=== PATIENT | male | born 1960 | race Caucasian/White ===

== ENCOUNTER 2022-11-18 09:18 | Outpatient (AMB) | payer BC, SELFPAY ==
[2022-11-18 09:49] VITALS: BMI 44.1
--- NOTE | 2022-11-18 09:49 | A.OFFVIS_ITS ---
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 States he is S.P left total knee 01/[address] Gonzalez, states he is concern due to on and off swelling which increases with activities. States at times knee feels as if it wants to give out and soreness on his lateral side and has numbness in knee still. Patient states that he is quite active. He states that the is on his feet for approximately 10 hours per day. He is not able to take anti-inflammatory medicines because he is on Eliquis. Allergies No Known Allergies Allergy (Verified 11/18/22 09:49) Medication List - Last Reconciled 11/18/22 by Robi Gonzalez MD albuterol sulfate 90 mcg/actuation (Ventolin HFA) 2 puffs inhalation Q4H PRN albuterol sulfate mg inhalation Q8H PRN atorvastatin 80 mg PO DAILY cetirizine (Wal-Zyr (cetirizine)) 0 mg PO ferrous sulfate 325 mg PO DAILY ferrous sulfate 110 mg PO DAILY losartan 100 mg PO DAILY metolazone mg PO metoprolol succinate ER 100 mg PO DAILY pantoprazole 40 mg PO DAILY Physical Exam Vital Signs: BMI result Body Mass Index 44.1 Const Other: Well-nourished well-developed very friendly male awake alert and oriented x3 in no acute distress Extrem Other: Bilateral lower extremity examination shows good capillary refill, no skin lesions noted, normal sensation light touch Left knee examination shows that the surgical incision is well healed, no erythema, full active extension and flexion to 125 degrees, his patella tracks well, minimal diffuse swelling Results Reviewed Results Reviewed: X-rays of the patient's left knee taken today show a total knee arthroplasty in good position with no signs of loosening, no acute bony abnormalities Assessment & Plan Assessment & Plan (1) Left knee pain: Code(s): M25.562 - Pain in left knee Plan Mr. Arnold continues to do well after undergoing left total knee replacement surgery. He does have intermittent swelling most likely due to overuse. Activity modifications were discussed at length with the patient. He does know to take antibiotics before any dental work. He will contact me prior to his annual follow-up appointment should any questions or concerns arise. I spent 22 minutes in reviewing the patient's records and imaging studies, seeing the patient and documenting in the medical record. Orders: Orders XR knee LT 3V Today M25.562 - Pain in left knee Coding Level of Care Code Est Pt Level 2 (28628) Diagnoses Left knee pain M25.562
== END 2022-11-18 10:20 | disposition home or self-care (01) ==
PROVIDERS: Visit Provider Orthopaedic Surgery
DX: M25.562 Pain in left knee (principal)
CPT/HCPCS: 99212

== ENCOUNTER 2022-11-18 13:15 | Outpatient (REF) | payer BC, SELFPAY ==
--- NOTE | ~2022-11-18 | XR_ITS ---
EXAMINATION: XR KNEE, LEFT CLINICAL INFORMATION: Pain. COMPARISON: None available. TECHNIQUE: AP, lateral and sunrise views of the left knee are submitted. FINDINGS: Prosthetic components of the total knee arthroplasty are appropriately aligned without periprosthetic fracture or abnormal lucency. No component migration. No joint effusion. XR/XR knee LT 3V IMPRESSION: Appropriate alignment of the left total knee arthroplasty without evidence of complications.
== END 2022-11-18 13:16 | disposition home or self-care (01) ==
LOC: HO.HOSX 13:15
PROVIDERS: Visit Provider Orthopaedic Surgery
DX: M25.562 Pain in left knee (principal)
CPT/HCPCS: 73562

== ENCOUNTER 2023-11-15 11:19 | Outpatient (REF) | payer BC, SELFPAY ==
--- NOTE | ~2023-11-15 | XR_ITS ---
EXAMINATION: XR SHOULDER, RIGHT XR SHOULDER, LEFT CLINICAL INFORMATION: Right shoulder pain. Left shoulder pain. COMPARISON: None available. TECHNIQUE: Two views of each shoulder. FINDINGS: RIGHT SHOULDER: Soft tissue anchors at the greater tuberosity, consistent with prior rotator cuff repair. Status post Gi procedure with slight fragmentation of the distal clavicle. Acromioplasty is also suspected. No fractures. Minimal glenohumeral arthrosis with marginal osteophytes at the humeral head. No acute fracture or malalignment. LEFT SHOULDER: [id number] acromioclavicular osteoarthritis. Glenohumeral joint appears well-preserved. There is a small 3 mm focus of calcific tendinitis at the greater tuberosity. Bones are osteopenic. No fracture or malalignment. XR/XR shoulder RT min 2V IMPRESSION: 1. [id number]-[id number] left acromioclavicular osteoarthritis. 2. Small focus of calcific tendinitis at the left greater tuberosity. 3. Minimal right glenohumeral osteoarthritis. 4. History right rotator cuff repair, subacromial decompression, and distal clavicular resection. Electronically signed by: Balbir Ro MD 11/21/2023 11:31 AM EDT
--- NOTE | ~2023-11-15 | XR_ITS ---
EXAMINATION: XR SHOULDER, RIGHT XR SHOULDER, LEFT CLINICAL INFORMATION: Right shoulder pain. Left shoulder pain. COMPARISON: None available. TECHNIQUE: Two views of each shoulder. FINDINGS: RIGHT SHOULDER: Soft tissue anchors at the greater tuberosity, consistent with prior rotator cuff repair. Status post Gi procedure with slight fragmentation of the distal clavicle. Acromioplasty is also suspected. No fractures. Minimal glenohumeral arthrosis with marginal osteophytes at the humeral head. No acute fracture or malalignment. LEFT SHOULDER: [id number]-[id number] acromioclavicular osteoarthritis. Glenohumeral joint appears well-preserved. There is a small 3 mm focus of calcific tendinitis at the greater tuberosity. Bones are osteopenic. No fracture or malalignment. XR/XR shoulder LT min 2V IMPRESSION: 1. Yazv-iy-kovpctei left acromioclavicular osteoarthritis. 2. Small focus of calcific tendinitis at the left greater tuberosity. 3. Minimal right glenohumeral osteoarthritis. 4. History right rotator cuff repair, subacromial decompression, and distal clavicular resection. Electronically signed by: Balbir Ro MD 11/21/2023 11:31 AM EDT
== END 2023-11-15 11:20 | disposition home or self-care (01) ==
LOC: HO.HOSX 11:19
PROVIDERS: Visit Provider Orthopaedic Surgery
DX: M19.012 Primary osteoarthritis, left shoulder (principal); M75.92 Shoulder lesion, unspecified, left shoulder; M19.011 Primary osteoarthritis, right shoulder; Z47.89 Encounter for other orthopedic aftercare
CPT/HCPCS: 73030

== ENCOUNTER 2023-11-15 12:04 | Outpatient (AMB) | payer BC, SELFPAY ==
[2023-11-15 12:37] VITALS: BMI 44.1
--- NOTE | 2023-11-15 12:37 | A.OFFVIS_ITS ---
Vital Signs 11/15/23 12:37 Height 6 ft Weight 325 lb BMI 44.1 Intake Visit Reasons: New prob - B/L shoulder pain Intake Note: John is a 63 year old right hand dominant male who presents with complaints of progressively worsening bilateral shoulder pains and weakness, right greater than left. The patient states that he has undergone 2 right shoulder surgeries in the past. The most recent surgery was many years ago. Patient states that he was recently shopping at [employer] when he lifted a de humidifier that was heavier than he anticipated. He had acute onset of pain along the lateral aspect of his right shoulder. He has done physical therapy exercises which aggravated his pain. He has failed the last 6 weeks of conservative treatment. The patient has tried Tylenol and anti-inflammatory medicines which gave him minimal relief. Allergies No Known Allergies Allergy (Verified 11/15/23 12:38) Medication List - Last Reconciled 11/15/23 by Robi Gonzalez MD albuterol sulfate 90 mcg/actuation (Ventolin HFA) 2 puffs inhalation Q4H PRN albuterol sulfate mg inhalation Q8H PRN atorvastatin 80 mg PO DAILY cetirizine (Wal-Zyr (cetirizine)) 0 mg PO ferrous sulfate 325 mg PO DAILY ferrous sulfate 110 mg PO DAILY losartan 100 mg PO DAILY metolazone mg PO metoprolol succinate ER 100 mg PO DAILY pantoprazole 40 mg PO DAILY Physical Exam Vital Signs: BMI result Body Mass Index 44.1 Const Other: Well-nourished well-developed very friendly male awake alert and oriented x3 in no acute distress Extrem Other: Bilateral upper extremity examination shows good capillary refill, no skin lesions noted, normal sensation light touch Right shoulder examination shows positive impingement signs, 4/5 strength with supraspinatus testing, no instability Left shoulder examination shows full range of motion when compared to his right shoulder, 4+ out of 5 strength with supraspinatus testing, tenderness over his acromioclavicular joint, no instability Results Reviewed Results Reviewed: X-rays of the patient's right shoulder show moderate acromioclavicular joint narrowing, a type 2 acromion, 4 suture anchors within the proximal humerus with no signs of loosening Left shoulder x-ray show severe acromioclavicular joint narrowing, a type 2 acromion, no acute bony abnormalities Assessment & Plan Assessment & Plan (1) Right shoulder pain: Code(s): M25.511 - Pain in right shoulder Category: Medical Plan Mr. Arnold presents with bilateral shoulder pains and weakness, right greater than left, possibly due to rotator cuff tearing. Thus, I will send the patient for an MRI of his right shoulder for further evaluation. I will see him back once the MRI is completed to discuss the findings and treatment options. He will continue with his range of motion exercises in the meantime. He will contact me prior to his follow-up appointment should any questions or concerns arise. I spent 20 minutes in reviewing the patient's records and imaging studies, seeing the patient and documenting in the medical record. Orders: Orders XR shoulder LT min 2V Today M25.512 - Pain in left shoulder XR shoulder RT min 2V Today M25.511 - Pain in right shoulder MR shoulder RT wo con Today M25.511 - Pain in right shoulder Coding Level of Care Code Est Pt Level 3 (63174) Diagnoses Right shoulder pain M25.511
== END 2023-11-15 13:04 | disposition home or self-care (01) ==
PROVIDERS: Visit Provider Orthopaedic Surgery
DX: M25.511 Pain in right shoulder (principal)
CPT/HCPCS: 99213